=== PATIENT | male | born 1950 | race Caucasian/White ===

== ENCOUNTER 2016-09-20 11:27 | Inpatient (IN) | payer MEDICARE, MEDICAID ==
[~2016-09-20 11:27] MED LIST: ACETAMINOPHEN325 M2 PO; ACTOS45 MG PO; ALDACTONE25 M1 PO; AMLODIPINE BESYL5 MG PO; AMLODIPINE-BEN1 EACH PO; ANTI-ITCH28 GM TOP; ASPIRIN EC325 M1 PO; ASPIRIN EC81 MG PO; ASPIRIN325 M3 PO; ASPIRIN81 M1 PO; AUGMENTIN 875-1 EAC2 PO; BACITRAYCIN PLU28 GM TP; BACTRIM DS TAB1 EAC2 PO; BENAZEPRIL HCL20 M2 PO; BISACODYL10 M1 PR; COLACE100 M1 PO; COLACE100 MG PO; COMPAZINE5 M2 PO; COREG12.5 M1 PO; COREG25 M1 PO; COREG6.25 M1 PO; CUBICIN500 MG IV; CULTURELLE1 CA1 PO; CYANOCOBAL1000 MCG/3 SC; CYCLOBENZAPRINE10 M1 PO; CYCLOBENZAPRINE5 M1 PO; CYMBALTA30 M1 PO; DEMADEX20 MG PO; DOCUSATE SODIU100 M3 PO; DOXYCYCLINE HY100 M3 PO; DULCOLAX STOOL100 M1 PO; DULCOLAX10 MG PR; DULCOLAX10 MG RC; DULCOLAX10 MG/SUPP RC; DULOXETINE HCL30 M1 PO; ECOTRIN325 M1 PO; FERROUS SULFAT324 MG PO; FLOMAX0.4 M1 PO; GABAPENTIN100 M1 PO; GLUCAGEN1 MG/1 ML IM; GLUCOSE4 G PO; HUMALOG KW200 UNIT/1 SC; HUMALOG MIX 75/10 ML SQ; HUMALOG100 U/ML SQ; HUMALOG100 UNIT/2 SC; HUMALOG100 UNITS/ SC; HUMULIN 70100 UNIT/2 SC; HYDROCODON-ACE1 EA16 PO; HYDROXYZINE HCL25 M1 PO; IMDUR60 M1 PO; KEFLEX500 M4 PO; KEFLEX500 MG PO; KLOR-CON 1010 MEQ PO; LANTUS100 U/ML SC; LASIX20 M1 PO; LASIX80 M1 PO; LEVAQUIN750 M1 PO; LEVEMIR FL100 UNIT/2 SC; LEVEMIR100 UNITS/ SC; LEVEMIR100 UNITS/ SQ; LEVOTHROID75 MCG PO; LEVOTHYROXINE100 MC1 PO; LEVOTHYROXINE100 MCG PO; LEVOTHYROXINE50 MC3 PO; LIDODEXTRAPINE1 EACH TP; LOSARTAN POTAS100 M1 PO; LOVASTATIN40 M1 PO; LOVENOX30 MG/0.3 SQ; MILK OF MAGNESIA PO; MINOXIDIL2.5 M1 PO; MIRALAX17 G2 PO; MIRALAX17 GM PO; NAFCILLIN IV; NEOSPORIN OINT1 EACH TP; NEURONTIN100 M1 PO; NORCO 5/3251 TA1 PO; NORCO 7.5-3251 EACH PO; NORMAL SALINE FL2 ML FL; NORVASC5 M2 PO; NOVOLOG FLEX PEN; NOVOLOG100 UNIT/1 SQ; NOVOLOG100 UNITS/ SC; NOVOLOG100 UNITS/ SQ; ONE DAILY COMP1 EAC1 PO; OXYCODONE/APAP PO; PATCH REMOVAL TOP; PERCOCET 5-3251 EACH; PERCOCET 5-3251 EACH PO; PERCOCET 7.5-31 EAC1 PO; POTASSIUM CHLO10 ME2 PO; PROAIR HFA8.5 GM INH; PROVENTIL HFA6.7 G1 INH; REGLAN5 M1 PO; RISAMINE OINTM113 G1 TOP; SENNA PLUS TAB1 EAC1 PO; SENNA8.6 M2 PO; SULFAMETHOXAZO1 EAC5 PO; SULFAMYLON SOL250 M1 EXT; SULFAMYLON60 GM TP; SYNTHROID100 MC1 PO; SYNTHROID175 MC1; SYNTHROID50 MC1 PO; TAMSULOSIN HCL0.4 M1 PO; TOPROL PO; TRAMADOL HCL50 MG PO; VITAMIN B-12 IM; XANAX0.25 M1 PO; ZANTAC150 M1 PO; ZOFRAN ODT4 MG SL; ZOFRAN4 M2 PO; [UNRECOGNIZED DRUG - OTHER] PO; [UNRECOGNIZED DRUG - OTHER] TOP
[2016-09-20 12:55] LABS: BASO % 1.1 % (0-2); BASO ABSOLUTE COUNT 0.1 tho/cmm (0.0-0.2); EOS % 6.2 % (0-7); EOSINOPHIL ABSOLUTE COUNT 0.4 tho/cmm (0.0-0.7); HCT-HEMATOCRIT 34.7 % (36.0-53.5); HGB-HEMOGLOBIN 10.9 gm/dl (13.5-17.0); IMMATURE GRANULOCYTES ABSOLUTE 0.01 tho/cmm (0-0.03); IMMATURE GRANULOCYTES PERCENT 0.2 % (0-0.3); LYMPH ABSOLUTE COUNT 1.1 tho/cmm (0.8-4.5); MCH (MEAN CORPUSCULAR HGB) 25.6 pg (28.0-32.0); MCHC MEAN CORPUSCULAR HGB CONC 31.4 % (32.0-36.0); MCV (MEAN CELL VOLUME) 81.6 fl (82.0-96.0); MEAN PLATELET VOLUME 8.9 cmc (9.4-12.4); MONO % 9.7 % (0-12); MONOCYTE ABSOLUTE COUNT 0.6 tho/cmm (0.0-1.2); NEUTROPHIL ABSOLUTE COUNT 4.3 tho/cmm (1.6-8.0); NEUTROPHIL-AUTOMATED 4.3 tho/cmm (1.6-8.0); NEUTROPHILS % 65.8 % (40-80); PLATELET COUNT 528 tho/cmm (150-450); RED BLOOD COUNT 4.25 mil/cmm (4.40-5.70); RED CELL DISTRIBUTION WIDTH 17.3 % (12.4-16.4); WHITE BLOOD COUNT 6.6 tho/cmm (4.0-10.0)
[2016-09-20 13:10] LABS: ALB/GLOB RATIO 0.5 (0.8-2.0); ALBUMIN 2.6 g/dl (3.5-5.0); ALKALINE PHOSPHATASE 192 U/L (33-138); ALT/SGPT 13 U/L (12-78); ANION GAP 14 mmol/L (0-20); AST/SGOT 19 U/L (10-40); BILIRUBIN,TOTAL 0.4 mg/dl (0.0-1.5); BLOOD UREA NITROGEN 19 mg/dl (6-24); C-REACTIVE PROTEIN 5.6 mg/dl (0-0.9); CHLORIDE 104 mmol/l (96-110); CREATININE 1.32 mg/dl (0.60-1.30); GLUCOSE 100 mg/dL (70-110); SODIUM 142 mmol/L (135-145); eGFR VALUE FOR BLACK 64 mL/Min
[2016-09-20 13:27] LABS: URINE BILIRUBIN NEGATIVE (NEG); URINE BLOOD MODERATE (NEG); URINE GLUCOSE (UA) NEGATIVE (NEG); URINE KETONE NEGATIVE (NEG); URINE LEUKOCYTE ESTERASE POSITIVE (NEG); URINE NITRITE NEGATIVE (NEG); URINE PROTEIN LARGE (NEG); URINE SPECIFIC GRAVITY 1.015 (1.003-1.030)
[2016-09-20 13:39] LABS: URINE APPEARANCE CLOUDY; URINE COLOR YELLOW
[2016-09-20 13:42] LABS: URINE WBC 80-100 /[HPF] (0-5)
[2016-09-20 13:43] LABS: URINE RBC 20-30 /[HPF] (0-5)
[2016-09-20 14:16] LABS: CARBON DIOXIDE-VENOUS 28 mmol/L (21-33)
[2016-09-20] MEDS ORDERED: HUMALOG100 UNIT/2 SC ×2 (14:40→14:42)
[2016-09-20 17:32] LABS: PROCALCITONIN 0.19 ng/ml (0.05-0.09)
[2016-09-21 05:49] LABS: BASO % 1.3 % (0-2); BASO ABSOLUTE COUNT 0.1 tho/cmm (0.0-0.2); EOS % 5.1 % (0-7); EOSINOPHIL ABSOLUTE COUNT 0.4 tho/cmm (0.0-0.7); HCT-HEMATOCRIT 32.2 % (36.0-53.5); IMMATURE GRANULOCYTES ABSOLUTE 0.01 tho/cmm (0-0.03); IMMATURE GRANULOCYTES PERCENT 0.1 % (0-0.3); LYMPH % 17.7 % (20-45); LYMPH ABSOLUTE COUNT 1.4 tho/cmm (0.8-4.5); MCH (MEAN CORPUSCULAR HGB) 25.3 pg (28.0-32.0); MCHC MEAN CORPUSCULAR HGB CONC 31.1 % (32.0-36.0); MCV (MEAN CELL VOLUME) 81.3 fl (82.0-96.0); MONO % 8.8 % (0-12); MONOCYTE ABSOLUTE COUNT 0.7 tho/cmm (0.0-1.2); NEUTROPHIL ABSOLUTE COUNT 5.1 tho/cmm (1.6-8.0); NEUTROPHIL-AUTOMATED 5.1 tho/cmm (1.6-8.0); PLATELET COUNT 513 tho/cmm (150-450); RED BLOOD COUNT 3.96 mil/cmm (4.40-5.70); RED CELL DISTRIBUTION WIDTH 17.3 % (12.4-16.4); WHITE BLOOD COUNT 7.6 tho/cmm (4.0-10.0)
[2016-09-21 05:56] LABS: ANION GAP 14 mmol/L (0-20); BLOOD UREA NITROGEN 17 mg/dl (6-24); CALCIUM 8.4 mg/dl (8.5-10.5); CARBON DIOXIDE-VENOUS 26 mmol/L (22-32); CHLORIDE 108 mmol/l (96-110); POTASSIUM 3.4 mmol/L (3.7-5.1); SODIUM 145 mmol/L (135-145); eGFR VALUE FOR BLACK 80 mL/Min
[2016-09-21 06:08] LABS: GLUCOSE 35 mg/dL (70-110)
[2016-09-22 01:58] LABS: BASO % 0.9 % (0-2); BASO ABSOLUTE COUNT 0.1 tho/cmm (0.0-0.2); EOSINOPHIL ABSOLUTE COUNT 0.4 tho/cmm (0.0-0.7); HCT-HEMATOCRIT 30.4 % (36.0-53.5); HGB-HEMOGLOBIN 9.4 gm/dl (13.5-17.0); IMMATURE GRANULOCYTES ABSOLUTE 0.03 tho/cmm (0-0.03); IMMATURE GRANULOCYTES PERCENT 0.3 % (0-0.3); LYMPH % 16.1 % (20-45); LYMPH ABSOLUTE COUNT 1.5 tho/cmm (0.8-4.5); MCH (MEAN CORPUSCULAR HGB) 25.4 pg (28.0-32.0); MCHC MEAN CORPUSCULAR HGB CONC 30.9 % (32.0-36.0); MCV (MEAN CELL VOLUME) 82.2 fl (82.0-96.0); MONO % 8.6 % (0-12); MONOCYTE ABSOLUTE COUNT 0.8 tho/cmm (0.0-1.2); NEUTROPHIL ABSOLUTE COUNT 6.6 tho/cmm (1.6-8.0); NEUTROPHIL-AUTOMATED 6.6 tho/cmm (1.6-8.0); NEUTROPHILS % 70.1 % (40-80); PLATELET COUNT 419 tho/cmm (150-450); RED CELL DISTRIBUTION WIDTH 17.5 % (12.4-16.4); WHITE BLOOD COUNT 9.4 tho/cmm (4.0-10.0)
[2016-09-22 02:06] LABS: ANION GAP 11 mmol/L (0-20); BLOOD UREA NITROGEN 17 mg/dl (6-24); CALCIUM 7.9 mg/dl (8.5-10.5); CARBON DIOXIDE-VENOUS 24 mmol/L (22-32); CHLORIDE 108 mmol/l (96-110); GLUCOSE 259 mg/dL (70-110); POTASSIUM 4.3 mmol/L (3.7-5.1); SODIUM 139 mmol/L (135-145); eGFR VALUE FOR BLACK 65 mL/Min
[2016-09-22 02:48] LABS: CKMB 4.4 ng/ml (<3.6)
[2016-09-22 02:51] LABS: CREATINE PHOSPHOKINASE (CPK) 48 U/L (35-232)
[2016-09-23 06:07] LABS: ANION GAP 12 mmol/L (0-20); BLOOD UREA NITROGEN 19 mg/dl (6-24); CALCIUM 8.2 mg/dl (8.5-10.5); CARBON DIOXIDE-VENOUS 24 mmol/L (22-32); CHLORIDE 109 mmol/l (96-110); CREATININE 1.42 mg/dl (0.60-1.30); GLUCOSE 199 mg/dL (70-110); SODIUM 141 mmol/L (135-145); eGFR VALUE FOR BLACK 59 mL/Min
[2016-09-29] MEDS ORDERED: LASIX20 M1 PO (09:32)
[2016-11-03] MEDS ORDERED: COZAAR25 M1 PO (10:49)
== END 2016-09-23 20:50 | DRG 637 ==
LOC: EDMED 11:27 → EMR2 16:04 → BURN 16:37
PROVIDERS: Emergency Medicine; Family Medicine; Physician Assistant Medical; ADMIT Hospitalist
DX: E11.621 Type 2 diabetes mellitus with foot ulcer (principal); I21.4 Non-ST elevation (NSTEMI) myocardial infarction; M86.9 Osteomyelitis, unspecified; N17.9 Acute kidney failure, unspecified; E87.2 Acidosis; I13.0 Hypertensive heart and chronic kidney disease with heart failure and stage 1 through stage 4 chronic kidney disease, or unspecified chronic kidney disease; I50.42 Chronic combined systolic (congestive) and diastolic (congestive) heart failure; G82.20 Paraplegia, unspecified; L97.429 Non-pressure chronic ulcer of left heel and midfoot with unspecified severity; L97.419 Non-pressure chronic ulcer of right heel and midfoot with unspecified severity; E11.649 Type 2 diabetes mellitus with hypoglycemia without coma; Z79.4 Long term (current) use of insulin; I25.10 Atherosclerotic heart disease of native coronary artery without angina pectoris; I25.5 Ischemic cardiomyopathy; A49.02 Methicillin resistant Staphylococcus aureus infection, unspecified site; E11.40 Type 2 diabetes mellitus with diabetic neuropathy, unspecified; I73.9 Peripheral vascular disease, unspecified; Z85.71 Personal history of Hodgkin lymphoma; N31.9 Neuromuscular dysfunction of bladder, unspecified; E03.9 Hypothyroidism, unspecified; Z95.1 Presence of aortocoronary bypass graft; D63.8 Anemia in other chronic diseases classified elsewhere; E78.5 Hyperlipidemia, unspecified; M06.9 Rheumatoid arthritis, unspecified; N18.3 Chronic kidney disease, stage 3 (moderate); R11.0 Nausea
CPT/HCPCS: G8978-GP-CM; G8979-GP-CL; G8980-GP-CM; J0878; J1650; J1815; J2405; J2543; J7030; J7999